=== PATIENT | female | born 1990 | race Caucasian/White ===

== ENCOUNTER → 2017-11-26 10:52 | Outpatient (CLI) | payer BC, SELFPAY ==
[2017-11-29 07:07] LABS: HPV Reflexed? NOT INDICATED
== END ==
PROVIDERS: Visit Provider Obstetrics & Gynecology
DX: Z12.72 Encounter for screening for malignant neoplasm of vagina (principal)
CPT/HCPCS: 88175; G0145

== ENCOUNTER → 2018-05-05 17:51 | Outpatient (CLI) | payer BC, SELFPAY ==
[2018-05-05 19:54] LABS: Chlamydia Trachomatis by PCR Negative (Negative); Neisserai gonorrhoeae by PCR Negative (Negative); Probe Check PASS; Sample Adequacy Control PASS; Specimen Processing Control PASS
== END ==
PROVIDERS: Visit Provider Obstetrics & Gynecology
DX: Z11.3 Encounter for screening for infections with a predominantly sexual mode of transmission (principal)
CPT/HCPCS: 87491; 87591

== ENCOUNTER → 2018-05-18 09:59 | Outpatient (CLI) | payer BC, SELFPAY ==
[2018-05-18 11:15] LABS: Color, Urine Yellow (Yellow); Glucose, Dipstick Normal (Normal); Ketone-Dipstick Negative (Negative); Leukocyte Esterase-Dipstick Negative /ul (Negative); Nitrite-Dipstick Negative (Negative); Occult Blood-Urine Negative /ul (Negative); Protein-Dipstick Negative (Negative); Urine Bilirubin Dipstick Negative (Negative); Urine Clarity Clear (Clear); Urine Urobilinogen Normal (Normal)
[2018-05-18 11:21] LABS: Absolute Lymphocyte Count 1.66 X10^3/ul (0.83-4.51); Absolute Neutrophil Count 6.8 X10^3/uL (2.0-7.7); Basophil# 0.02 X10^3/uL; Basophil% 0.2 % (0-1); Eosinophil# 0.12 X10^3/uL; Eosinophils% 1.3 % (0-5); Hemoglobin 13.6 g/dl (12.0-15.0); Lymphocyte # 1.66 X10^3/ul (4.0); Lymphocyte % 17.8 % (19-41); Mean Corp Hgb Conc 33.2 g/gl (32-36); Mean Corpuscular Hgb 28.6 pg (27.0-32.0); Mean Corpuscular Volume 86.1 fL (81-99); Mean Platelet Vol. 10.5 fl (6.2-12.0); Monocyte# 0.69 X10^3/uL; Monocyte% 7.4 % (0-10); Neutrophil # 6.79 X10^3/uL (2.7-7.7); Neutrophil % 73.1 % (47-70); Platelet Count 262 K/mm3 (150-450); RBC Distribution Width CV 12.5 % (11.6-14.6); RBC Distribution Width SD 39.6 fl (35.1-43.9); Red Blood Count 4.76 M/mm3 (4.2-5.4); White Blood Count 9.3 K/mm3 (4.4-11.0)
[2018-05-18 11:23] LABS: POSITIVE COUNT NO; POSITIVE DIFFERENTIAL NO; POSITIVE MORPHOLOGY NO
[2018-05-18 11:26] LABS: Amphetamine Urine VISTA NEGATIVE (<1000 ng/mL); Barbiturate Urine VISTA NEGATIVE (< 200 ng/mL); Benzodiazepine Urine VISTA NEGATIVE (< 200 ng/mL); Cocaine Urine VISTA NEGATIVE (< 300 ng/mL); Ecstacy Urine VISTA NEGATIVE (< 500 ng/mL); Methadone Urine VISTA NEGATIVE (< 300 ng/mL); PCP Urine VISTA NEGATIVE (< 25 ng/mL); THC Urine VISTA NEGATIVE (< 50 ng/mL); Vista UDS pH Range 7
[2018-05-18 11:27] LABS: COTININE Drug Screen Negative (<200 ng/mL)
[2018-05-18 11:56] LABS: Thyroid Stim Hormone (TSH) 0.87 uIU/mL (0.358-3.74)
[2018-05-19 10:10] LABS: HIV - WCH Non-Reactive (Nonreactive); Rubella IgG > 500.0 IU/mL
[2018-05-19 13:36] LABS: HEPATITIS B SURFACE AG Negative (Negative); Hep C Antibodies <0.1 s/co ratio (0.0-0.9)
[2018-05-21 03:42] LABS: Prenatal RPR NONREACTIVE (NONREACTIVE)
== END ==
PROVIDERS: Visit Provider Obstetrics & Gynecology
DX: Z34.81 Encounter for supervision of other normal pregnancy, first trimester (principal)
CPT/HCPCS: 36415; 80307; 81002; 84443; 85025; 86703; 86762; 86803; 87340

== ENCOUNTER 2018-06-18 06:02 | Day surgery (SDC) | payer BC, SELFPAY ==
[2018-06-18] VITALS (7 sets, daily range): BP systolic 113–143; BP diastolic 80–100; PULSE 84–93; RESP 16–18; TEMP 36.8–37; O2SAT 99–100; BMI 41.5
--- NOTE | 2018-06-18 07:30 | POC_PTH ---
PATIENT: YANELIS LYN LOC: [facility] [place] U[place][id number] AGE/SX: 28/F ROOM: RE06/18/[address]: Dr. Wilbur Prasad MD : [id number] BED: DIS: 06/18/2018 SPEC #: [id number] RECD: 06/18/18 08:31 STATUS: JACQUI BRANDT #: [id number] ARIADNE: 06/18/18 07:[address]: Wilbur Prasad DEPT: SURGICAL PATHOLOGY RECD BY: Mitchell Beltran ENTERED: 06/18/18 11:58 SP TYPE: PROD CONC OTHR DR: No Primary Care Phys Tissues: Product of conception, NOS Procedures: Surgery Specimen Level IV HEADER OPERATION: Dilation and curettage, suction PRE-OP DIAGNOSIS: Missed TISSUE SUBMITTED: Products of conception MICROSCOPIC DIAGNOSIS Endometrium, curettage: Chorionic villi, decidualized stroma and trophoblastic cells consistent with products of conception. AM:moises 06/21/18 MICROSCOPIC DESCRIPTION Slides are reviewed. GROSS DESCRIPTION Received in fixative is one container labeled with the patient's name and designated products of conception. The specimen consists of a piece of pink hemorrhagic tissue consistent with gestational sac measuring 6.5 x 3 x 2.5 cm. Also present in the container are multiple fragments of hemorrhagic soft tissue measuring in aggregate 2.5 x 2 x 0.5 cm. tissue is noted measuring 1 x 1 x 0.3 cm. Diagnostic Radiologic Technologist sections are submitted in two cassettes. Cassette 1 contains the tissue. / DERRELL:moises 06/18/18 TC:5 CPT: 87791
--- NOTE | 2018-06-18 07:53 | DCINST_ITS ---
You will use the following diet at home:: No restrictions, Regular Your food should be the consistency of: Regular Discharge Activity: Return to Normal Activity, No Restrictions, May Drive, May Shower Return to work on:: 06/21/18 May shower in (days): 0 May resume sexual activity in: 3 weeks Call your doctor if your incision/area has: Sudden Increased Bleeding, Foul Smelling Discharge Call your doctor if you observe: Fever of 101 or Higher, Inability to urinate, Inability to have a bowel movement, Using more than one pad per hour, Shortness of breath, Chest pain, Calf discomfort, Uncontrolled pain Cleanse incision/area with: Soap & Water Allergies/Adverse Reactions: Allergies amoxicillin Allergy (Verified 06/16/18 08:26) Rash Medications to take at Discharge Vit No.130/Iron/FA [ Tablet] 1 tab PO DAILY 08/01/16 Ibuprofen 600 mg PO 4X/DAY #20 tab 06/18/18 The following prescriptions were given: Ibuprofen 600 mg PO 4X/DAY #20 tab Primary Care Physician: Care Physician,No Primary [Primary Care Provider] - Test Results: Test results from this visit will be discussed in further detail at your follow- up appointment, if applicable. Please Follow Up With: Wilbur Prasad MD When: one week
--- NOTE | 2018-06-18 07:53 | PCM.OPRPT ---
Problem List (1) Missed with demise before 20 completed weeks of gestation Status: Acute Report of Operation Date of Procedure: 06/18/18 Pre-Operative Diagnosis: Missed Post-Operative Diagnosis: Same Surgery/Procedure Performed:: Suction Dilation and Curettage Description of Surgical Findings:: Cervical OS open to 9mm. Bleeding present. Appropriate products of conception for EGA at time of demise. health care assistant: None Type of Anesthesia:: MAC Anesthesiologist: Jack Shea Special Medications: none Specimen's removed: Products of conception Drains: none Estimated Blood Loss (mL): 20cc Fluids Replaced: 500cc LR Description of Procedure: Emely was found to have an embryonic demise at approximately 7 6/7 weeks EGA based on US findings. She was taken to the OR with IV running. She was given gentamicin and clindamycin intravenously for surgical prophylaxis. MAC anesthesia was introduced without complication. She was prepped and draped in the dorsal lithotomy position. A red rubber catheter was used to drain the bladder. A weighted speculum was placed in the posterior vagina , the cervix identified and grasped anteriorly with a single toothed tenaculum. A #8 suction curette was then placed into the uterine cavity, suction applied, and products of conception were obtained. The suction curette was removed and a sharp curettage was then performed. The suction curette was reintroduced and the remained products of conception removed. Bleeding was light. All instruments were removed from the vagina. She was reversed from anesthesia and taken to the recovery room in stable condition. Blood type is O+. Sponge and instrument counts were correct. - Complications none - Admit VTE Documentation VTE Present on Admission: No VTE Mechan Device Prophylaxis: SCD's VTE Pharm Prophylaxis ordered?: No Reason prophylaxis not ordered:: Treatment Not Indicated
[2018-06-18] MEDS: Ketorolac 30 MG/ML Syringe IV (08:54)
== END 2018-06-18 09:22 | disposition home or self-care (01) ==
LOC: SDC 06:04 → AC 06:04
PROVIDERS: Referring Provider Obstetrics & Gynecology; Visit Provider Obstetrics & Gynecology
PROC: (CPT 59820; principal; 2018-06-18 07:15)
DX: O02.1 Missed abortion (principal)
CPT/HCPCS: 01965; 59820; 88305; J7120

== ENCOUNTER → 2018-11-09 18:29 | Outpatient (CLI) | payer BC, SELFPAY ==
[2018-11-09 23:20] LABS: Chlamydia Trachomatis by PCR Negative (Negative); Neisserai gonorrhoeae by PCR Negative (Negative); Probe Check PASS; Sample Adequacy Control PASS; Specimen Processing Control PASS
[2018-11-12 12:47] LABS: HPV Reflexed? NOT INDICATED
== END ==
PROVIDERS: Referring Provider Obstetrics & Gynecology; Visit Provider Obstetrics & Gynecology
DX: Z11.3 Encounter for screening for infections with a predominantly sexual mode of transmission (principal); Z12.4 Encounter for screening for malignant neoplasm of cervix
CPT/HCPCS: 87491; 87591; 88175; G0145

== ENCOUNTER → 2018-11-26 15:25 | Outpatient (CLI) | payer BC, SELFPAY ==
[2018-06-18 06:36] VITALS: BMI 41.5
[2018-11-26 16:26] LABS: Absolute Lymphocyte Count 1.99 X10^3/ul (0.83-4.51); Absolute Neutrophil Count 12.6 X10^3/uL (2.0-7.7); Basophil# 0.02 X10^3/uL; Basophil% 0.1 % (0-1); Eosinophil# 0.06 X10^3/uL; Eosinophils% 0.4 % (0-5); Hematocrit 40.1 % (37-47); Hemoglobin 13.4 g/dl (12.0-15.0); Lymphocyte # 1.99 X10^3/ul (4.0); Lymphocyte % 12.7 % (19-41); Mean Corp Hgb Conc 33.4 g/gl (32-36); Mean Corpuscular Hgb 28.6 pg (27.0-32.0); Mean Corpuscular Volume 85.7 fL (81-99); Mean Platelet Vol. 10.9 fl (6.2-12.0); Monocyte# 0.88 X10^3/uL; Monocyte% 5.6 % (0-10); Neutrophil # 12.63 X10^3/uL (2.7-7.7); Neutrophil % 80.9 % (47-70); POSITIVE COUNT NO; POSITIVE DIFFERENTIAL NO; POSITIVE MORPHOLOGY NO; Platelet Count 298 K/mm3 (150-450); RBC Distribution Width CV 12.4 % (11.6-14.6); RBC Distribution Width SD 38.1 fl (35.1-43.9); Red Blood Count 4.68 M/mm3 (4.2-5.4); White Blood Count 15.6 K/mm3 (4.4-11.0)
[2018-11-26 16:30] LABS: COTININE Drug Screen Negative (<200 ng/mL)
[2018-11-26 16:36] LABS: Amphetamine Urine VISTA NEGATIVE (<1000 ng/mL); Barbiturate Urine VISTA NEGATIVE (< 200 ng/mL); Benzodiazepine Urine VISTA NEGATIVE (< 200 ng/mL); Cocaine Urine VISTA NEGATIVE (< 300 ng/mL); Ecstacy Urine VISTA NEGATIVE (< 500 ng/mL); Methadone Urine VISTA NEGATIVE (< 300 ng/mL); PCP Urine VISTA NEGATIVE (< 25 ng/mL); THC Urine VISTA NEGATIVE (< 50 ng/mL); Vista UDS pH Range 6
[2018-11-26 16:40] LABS: Color, Urine Yellow (Yellow); Glucose, Dipstick Normal (Normal); Ketone-Dipstick Negative (Negative); Leukocyte Esterase-Dipstick 100 /ul (Negative); Nitrite-Dipstick Negative (Negative); Occult Blood-Urine Negative /ul (Negative); Protein-Dipstick Negative (Negative); Urine Bilirubin Dipstick Negative (Negative); Urine Clarity Sl. Cloudy (Clear); Urine Urobilinogen Normal (Normal); Urine pH 6.5 (5.0 - 8.0)
[2018-11-26 16:44] LABS: Thyroid Stim Hormone (TSH) 0.44 uIU/mL (0.358-3.74)
[2018-11-26 17:27] LABS: HIV - WCH Non-Reactive (Nonreactive); Rubella IgG > 500.0 IU/mL
[2018-11-30 11:19] LABS: HEPATITIS B SURFACE AG Negative (Negative); Hep C Antibodies <0.1 s/co ratio (0.0-0.9)
[2018-12-03 02:05] LABS: Prenatal RPR NONREACTIVE (NONREACTIVE)
== END ==
PROVIDERS: Visit Provider Obstetrics & Gynecology
DX: Z34.81 Encounter for supervision of other normal pregnancy, first trimester (principal)
CPT/HCPCS: 36415; 80307; 81002; 84443; 85025; 86703; 86762; 86803; 87340

== ENCOUNTER → 2019-02-08 16:30 | Outpatient (CLI) | payer BC, SELFPAY ==
[2018-06-18 06:36] VITALS: BMI 41.5
[2019-02-08 17:42] LABS: Hematocrit 35.4 % (37-47); Hemoglobin 12.3 g/dl (12.0-15.0); Mean Corp Hgb Conc 34.7 g/gl (32-36); Mean Corpuscular Hgb 29.1 pg (27.0-32.0); Mean Corpuscular Volume 83.7 fL (81-99); Mean Platelet Vol. 10.3 fl (6.2-12.0); Platelet Count 258 K/mm3 (150-450); RBC Distribution Width SD 39.7 fl (35.1-43.9); Red Blood Count 4.23 M/mm3 (4.2-5.4); White Blood Count 13.4 K/mm3 (4.4-11.0)
[2019-02-08 17:45] LABS: International Normalized Ratio 0.9; Partial Thromboplast Time 26.1 Seconds (24.1-36.2); Prothrombin Time (Protime)PT. 12.4 SECONDS (11.7-14.9); Scan Indicated on CBC? Y/N NO
[2019-02-08 17:49] LABS: Protein, Urine (Random) < 6.0 mg/dL (<11.9)
[2019-02-08 18:29] LABS: AST(SGOT) 9 U/L (15-37); Alanine Aminotransfer ALT/SGPT 15 U/L (13-56); Creatinine, Serum 0.74 mg/dL (0.55-1.02); EST Glomerular Filtration Rate 98 mL/min (>60); Est Glom Filt Rate - Afr Amer 119 mL/min (>60); Uric Acid 3.3 mg/dL (2.6-6.0)
== END ==
PROVIDERS: Visit Provider Obstetrics & Gynecology
DX: Z34.82 Encounter for supervision of other normal pregnancy, second trimester (principal)
CPT/HCPCS: 36415; 82565; 82570; 84156; 84450; 84460; 84550; 85027; 85610; 85730

== ENCOUNTER → 2019-04-06 15:22 | Outpatient (CLI) | payer OTHER, SELFPAY ==
[2018-06-18 06:36] VITALS: BMI 41.5
[2019-04-06 15:51] LABS: Hematocrit 36.5 % (37-47); Hemoglobin 12.5 g/dL (12.0-15.0); Mean Corp Hgb Conc 34.2 g/dL (32-36); Mean Corpuscular Hgb 29.3 pg (27.0-32.0); Mean Corpuscular Volume 85.7 fL (81-99); Mean Platelet Vol. 10.3 fl (6.2-12.0); Platelet Count 252 K/mm3 (150-450); RBC Distribution Width CV 12.7 % (11.6-14.6); RBC Distribution Width SD 39.3 fl (35.1-43.9); Red Blood Count 4.26 M/mm3 (4.2-5.4); White Blood Count 14.1 K/mm3 (4.4-11.0)
[2019-04-06 16:25] LABS: Glucose Challenge Gest 1H 50g 143 mg/dL (70-140)
== END ==
PROVIDERS: Visit Provider Obstetrics & Gynecology
DX: Z34.82 Encounter for supervision of other normal pregnancy, second trimester (principal)
CPT/HCPCS: 36415; 82950; 85027

== ENCOUNTER → 2019-04-12 06:53 | Outpatient (CLI) | payer OTHER, SELFPAY ==
[2018-06-18 06:36] VITALS: BMI 41.5
[2019-04-12 08:09] LABS: Glucose GTT-Gestation. Fasting 98 mg/dL (<105)
[2019-04-12 09:22] LABS: Glucose GTT-Gestational 1 Hr 204 mg/dL (<190)
[2019-04-12 10:11] LABS: Glucose GTT-Gestational 2 Hr 170 mg/dL (<165)
[2019-04-12 11:38] LABS: Glucose GTT-Gestational 3 Hr 57 L (<145)
== END ==
PROVIDERS: Referring Provider Obstetrics & Gynecology; Visit Provider Obstetrics & Gynecology
DX: O24.912 Unspecified diabetes mellitus in pregnancy, second trimester (principal); Z3A.00 Weeks of gestation of pregnancy not specified
CPT/HCPCS: 36415; 82951; 82952

== ENCOUNTER 2019-05-11 10:00 | Outpatient (RCR) | payer OTHER, SELFPAY | END 2019-05-14 23:59 | LOC: DC 10:00 | PROVIDERS: Visit Provider Obstetrics & Gynecology | DX: O24.912 Unspecified diabetes mellitus in pregnancy, second trimester (principal) | CPT/HCPCS: 97802; G0108 ==

== ENCOUNTER 2019-05-31 15:00 | Outpatient (RCR) | payer OTHER, SELFPAY ==
[2018-06-18 06:36] VITALS: BMI 41.5
== END 2019-05-31 23:59 | disposition home or self-care (01) ==
LOC: DC 15:00
PROVIDERS: Referring Provider Obstetrics & Gynecology; Visit Provider Obstetrics & Gynecology
DX: O24.912 Unspecified diabetes mellitus in pregnancy, second trimester (principal)

== ENCOUNTER → 2019-06-06 17:54 | Outpatient (CLI) | payer OTHER, SELFPAY ==
[2018-06-18 06:36] VITALS: BMI 41.5
== END ==
PROVIDERS: Referring Provider Obstetrics & Gynecology; Visit Provider Obstetrics & Gynecology
DX: Z36.85 Encounter for antenatal screening for Streptococcus B (principal)
CPT/HCPCS: 87081

== ENCOUNTER 2019-06-24 05:20 | Inpatient (IN) | payer OTHER, SELFPAY ==
[2019-06-24] VITALS (16 sets, daily range): BP systolic 109–135; BP diastolic 54–91; PULSE 72–109; RESP 13–18; TEMP 36.1–36.7; O2SAT 97–100; BMI 40.1
[2019-06-24] MEDS: Lactated Ringers 1,000 ML 999 ML IV (05:45)
[2019-06-24 06:08] LABS: Absolute Lymphocyte Count 2.08 X10^3/uL (0.83-4.51); Absolute Neutrophil Count 9.7 X10^3/uL (2.0-7.7); Basophil# 0.04 X10^3/uL; Basophil% 0.3 % (0-1); Eosinophil# 0.07 X10^3/uL; Eosinophils% 0.5 % (0-5); Hematocrit 40.1 % (37-47); Hemoglobin 13.6 g/dL (12.0-15.0); Lymphocyte # 2.08 X10^3/ul (4.0); Lymphocyte % 16.3 % (19-41); Mean Corp Hgb Conc 33.9 g/dL (32-36); Mean Corpuscular Volume 85.5 fL (81-99); Mean Platelet Vol. 11.2 fl (6.2-12.0); Monocyte# 0.83 X10^3/uL; Monocyte% 6.5 % (0-10); NRBC Flagged by Analyzer 0 % (0-5); Neutrophil # 9.67 X10^3/uL (2.7-7.7); Neutrophil % 75.6 % (47-70); Platelet Count 221 K/mm3 (150-450); RBC Distribution Width CV 13.3 % (11.6-14.6); RBC Distribution Width SD 41.1 fl (35.1-43.9); Red Blood Count 4.69 M/mm3 (4.2-5.4); White Blood Count 12.8 K/mm3 (4.4-11.0)
[2019-06-24 06:45] LABS: Bedside Glucose 81 mg/dL (70-110)
[2019-06-24] MEDS: Lactated Ringers 1,000 ML 150 ML IV (07:06)
[2019-06-24] MEDS: Sodium Citrate/Citric Acid 30 ML UDC PO (07:07)
--- NOTE | 2019-06-24 07:14 | HP.PCM_ITS ---
- Problem List (1) Gestational diabetes mellitus (GDM) Status: Acute Qualifiers: Gestational diabetes mellitus control: oral hypoglycemic-controlled Trimester: third trimester Qualified Code(s): O24.415 - Gestational diabetes mellitus in , controlled by oral hypoglycemic drugs (2) 39 weeks gestation of Status: Acute History Date of Admission: 06/24/19 Final MEHDI: 06/30/19 Final MEHDI Source: US <20 weeks Gestational age: 41 Weeks and 1 Days History of this : This is a 29 year-old, G [2], P [1001], at 39 1/7 weeks gestational age with hx GDMA2 presenting for scheduled repeat section. Surgical History: Surgical History (Last Updated 06/24/19 @ 07:16 by Frances Serra MD) Previous section Z98.891 08/03/2016 Allergies amoxicillin Allergy (Verified 06/24/19 05:23) Rash Home Medications: Home Medications Vit No.130/Iron/Folic [ Tablet] 1 tab PO DAILY 08/01/16 Aspirin [Aspir 81] 81 mg PO DAILY 06/24/19 Glyburide 2.5 mg PO DAILY 06/24/19 Ibuprofen [Ibu] 600 mg PO Q6H PRN PRN #30 tab 06/26/19 Ibuprofen [Motrin] 600 mg PO Q6H PRN PRN #30 tab 06/26/19 Senna/Docusate Sodium [Senokot-S] 1 tab PO DAILY PRN #30 tab 06/26/19 Sennosides/Docusate Sodium [Senna-Docusate Sodium Tablet] 1 ea PO BID PRN PRN #30 tab 06/26/19 Smoking Status: Never smoker Alcohol: None Number of Fetus(es): 1 NST - FHR Rate Baby A Baseline: 142 History Past Pregnancies: Past Pregnancies PRIOR DELIVERY HISTORY DEL DATE GEST LAB WT LB WT OZ TYPE ANES LABOR TX 05 Jun 18 10 0 0 0 Sab General No Jul 30 38 48 6 8 C-Sec Spinal No Labs: Mom's Problem List Problem Status Onset Code Gestational diabetes mellitus (GDM) Acute O24.419 39 weeks gestation of Acute Z3A.39 Mom's Labs & Results 06/24/19 06/24/19 06/24/19 05:45 05:45 06:37 WBC 12.8 H RBC 4.69 Hgb 13.6 Hct 40.1 MCV 85.5 MCH 29.0 MCHC 33.9 RDW Std Deviation 41.1 RDW Coeff of Vincent 13.3 Plt Count 221 MPV 11.2 Immature Gran % (Auto) 0.800 Neut % (Auto) 75.6 H Lymph % (Auto) 16.3 L [place] % (Auto) 6.5 Eos % (Auto) 0.5 Baso % (Auto) 0.3 Absolute Neuts (auto) 9.7 H Absolute Lymphs (auto) 2.08 Nucleated RBC % 0 POC Glucose 81 Blood Type O POSITIVE Antibody Screen NEGATIVE Course Did the patient receive Yes care? Labs Blood Type: O RH: POSITIVE RPR/VDRL/Syphilis Nonreactive Rubella status Immune HbSAg Negative Date Done: 11/26/18 Chlamydia Negative Gonorrhea Negative HIV/AIDS Non-Reactive Group B Strep: Negative Current Obstetrical History Gestational Diabetes Yes: on glyburide Incompetent Cervix No Infertility No IUGR No Macrosomia No Hypertension/Pre-eclampsia No: ? chronic htn Placenta Previa/Abruption No PTL/PROM No Uterine anomaly No Oligohydramnios No Polyhydramnios No Multiple gestation No Past Medical History Asthma No Diabetes No Hypertension No: ? chronic htn Heart disease No Mitral valve prolapse No Neurologic/Seizure disorder/ No Migraines Kidney disease No Liver disease No Varicosities No Clotting disorders/Hx of DVT No Thyroid Dysfunction No Other medical diseases No Psychiatric disorders No Major trauma No Abnormal PAP smear No Sleep apnea No Mammogram in the last 2 years No Social History Marital Status: Alleged father [place] Hx Smoking No Smoking Status Never smoker ANTEPARTUM FLOW CHART VISIT GE RTC FU F F WV U U DATE WK MD WKS HT PN HR M SS BP ED WT WV GL D EF ST __ ____ ___ __ __ ___ __ __ __ ___ __ __ __ ___ __ 08 Jun SHM 1 38 V + + 116/88 sl 229 - - 03 Jun 38 SHM 1 37 V + + 122/82 sl 225 - - 23 Sep 36 SHM 1 36 V + + 110/80 sl 226 - - 09 Sep 34 SHM 2 35 V + + 114/78 0 225 - - 04 Sep 33 SHM 1 34 V + + 122/78 0 227 - - 30 Apr 33 SHM 2 33 V + + 120/88 0 225 tr - Apr 32 SHM 2 32 ? + + 126/80 o 227 - - 07 Apr 29 SHM 2 31 ? + + 110/80 0 230 - - 24 Apr 09 SHM 3 28 ? + + 130/84 0 229 - - 25 Feb 23 DS 4 24 ? + + 132/78 0 228 - - 28 January 30 ELB 4 - - U+ + 130/90 0 223 - - 07 January 16 DS 3 17 ? U+ + 124/96 0 222 - - 10 Dec 12 DS 4 12 ? + O 140/100 0 222 - - 15 Nov 9 DS 4 ? U+ O 120/90 0 222 - - ANTEPARTUM NOTE(S): Jun 21 2019: NST today Jun 16 2019: Copy of blood sugars obtained for review. Jun 06 2019: May 23 2019: Blood sugars copied for review. May 18 2019: Blood sugars copied for review May 13 2019: doing well, BS record copied May 04 2019: Apr 20 2019: feeling well. Very emotional, needs educated aboout GDM. Apr 06 2019: feeling well. Glucola lab drawn today. Mar 08 2019: BP large cuff Feb 08 2019: concerned about headaches and blood pressure. Jan 18 2019: BP Large cuff Dec 22 2018: feeling well. Nov 26 2018: feeling well. COMPREHENSIVE ANTEPARTUM NOTE(S): Jun 16 2019: Emeyl is here at 38 w 0 d for her NST, followed by a PNV. US for growth completed prior to NST today. She states that she feels nauseated today, and threw up x 1 this morning. Reports good FM. Denies spotting. Feels some mild irregular cramping. Slight edema noted. NST non-reactive, read per Dr. Luis Antonio Escobedo. AW Jun 16 2019: EFW 2910g (22nd%), POLY 11.8cm, BPP 8/10 (-2 for NST - Cat I but nonreactive). C/S consents signed and reviewed. Few elevated fasting blood sugars. Inc Glyburide to 2.5mg qhs - f/u next week. Jun 13 2019: H taken to OB. tkg Jun 06 2019: Emely is here for NST for GDM on meds at 36.4 weeks gest and appt. Good movement. Feeling fairly well. States trying hard w diet and glucose monitoring. Brought current Blood sugar readings and copied for chart. For GBS today. LARC form explained. MIKE. May 23 2019: Emely is here for her NST for GDM (on Glyburide) at 34 w 4 d. She states that she is feeling well and reports good FM. Denies spotting/cramping. No edema noted. NST reactive, read per Dr. Luis Antonio Escobedo. AW May 23 2019: EFW 2289g (26th%), POLY 12cm. Fasting blood sugars improved. Continue Glyburide 2.5mg qpm. May 18 2019: Emely is here for her NST at 33 w 6 d. NST/EEFM explained. She reports that she feels well. Denies spotting or cramping. Feels good FM. No edema noted. Blood sugars copied for review. NST reactive, read per Dr Luis Antonio Escobedo, acoustic stim x 1. AW May 18 2019: Fasting blood sugars with some elevation, target 78%. Will start Glyburide 1.25mg qpm. PTL, ROM, FM precautions. May 13 2019: Elevated fastings, 1h postprandials ok. Started new dietary regimen, increasing qpm carb intake with improvement of levels, just started. Declines rx today. Will continue to observe with dietary change. f/u next week. Plan for US in 2 weeks. Apr 20 2019: Reviewed dx GDM importance of euglycemia to reduce risk for hypoglycemia and macrosomia. Reviewed increased risk for should dystocia also and potential risks for clavicular or humoral fracture, HIE, CP, . Target fasting and 1h postprandials reviewed. 1h <140, fastings 90s-low 100s. Dietary strategies discussed. f/u with patrol captain. Apr 07 2019: Entry for 04/06/19: Rpt heart views today show nl 4 chamber, + echogenic cardiac focus. Recommend MFM referral. Discussed NIPT r/b vs. amniocentesis. Pt considering, will call to proceed with referral. Mar 08 2019: GCT and CBC next visit. No specific complaints. Good movement. BP normal. PIH labs normal. Feb 10 2019: Here for PNV. sono. She has high BP. May have chronic HTN as many of her BPs borderline in . Recommended baby ASA daily. Also will have PIH labs today as baseline Advised if BPs remain elevated/worsening, that she may be started on antihypertensive med for . No RX given today. Will notify of labs as back. RTO for next PNV. EB Jan 19 2019: Diastolic BP modestly elevated. No proteinuria. Likely has chronic hypertension. Anatomical US next visit. Jan 18 2019: Anatomical US next visit. Jan 18 2019: Emely is taking an 81 mg Aspirin daily. She has felt FM. Declines genetics testing. kbm Dec 22 2018: Doing well. No bleeding. labs normal. Good heart beat today. BP modestly elevated. Has hx of gestational hypertension. Will start low dose aspirin. Consider antihypertensive if remains elevated. Nov 26 2018: Some nausea at times. No bleeding. US confirms EDC today. Normal heart beat today. NOB nurse intake today and labs done today. Nov 26 2018: Emely is here for her NOB visit at 9 w 1 d, she is a A1 with an MEHDI of 06/30/2019. US and visit with Dr. Prasad completed prior to NOB visit. , Silvano, accompanies her today. They have a young son at home, who was delivered by C/S for lack of progress. Past history updated. Delivery by repeat C/S at [facility] is planned and she will breastfeed. She had problems with her son, and pumped and fed him expressed breast milk for one year. Discussed office class as a refresher is needed. Office practice patterns reviewed, and she is aware of which labs will be collected today. Emergencies/danger signs to report, round ligament pain, reporting s/s of a UTI, and common OTC medications approved/not approved for use during reviewed. She takes an OTC vitamin that contains DHA, and tolerates this well as long as she takes it just before be. Reports daily nausea and vomiting. Discussed ways to minimize nausea, including small frequent meals with protein included throughout the day, adequate water hydration of at least one gallon per 24 hrs, Unisom at bedtime, motion sickness bracelets, and Vitamin B6 50 mg twice a day. Emely is a life long non-smoker, and she denies use of drugs or ETOH. Genetic Screening form completed, no significant history noted. MSAFP and CF testing declined, consent signed as such. Emely walks several times a week for exercise. Kegel exercises reviewed. Lifting limits discussed. Dietary and water needs of reviewed, including caloric needs, recommended weight gain, limiting empty calories, and limiting caffeine to one cup a day. Printed guide for food safety provided with review. Emely states that she understands all information provided during NOB visit, and has no questions following same. To [facility] draw station for labs. AW Expected Delivery Method: Scheduled Section Number of Visits: 14 Physical Exam Vitals: AVSS General: Alert, Oriented x3, Cooperative, No apparent distress HEENT: Atraumatic, Normocephalic Cardiovascular: Regular rate, Regular Rhythm, Normal S1, Normal S2 Lungs: Normal air movement Abdomen: Soft, Non Tender, Gravid Neurological: Neuro grossly intact Estimated gestational size: Appropriate for gestational size Presentation: Cephalic Assessment/Plan All Active Problems Gestational diabetes mellitus (GDM) (Acute) 39 weeks gestation of (Acute) This is a 29 year-old, G [2], P [1001], at 39 1/7 weeks gestational age for scheduled repeat section -Proceed as planned.
--- NOTE | 2019-06-24 08:51 | PCM.OPRPT ---
Problem List (1) Gestational diabetes mellitus (GDM) Status: Acute Qualifiers: Gestational diabetes mellitus control: oral hypoglycemic-controlled Trimester: third trimester Qualified Code(s): O24.415 - Gestational diabetes mellitus in , controlled by oral hypoglycemic drugs (2) 39 weeks gestation of Status: Acute Delivery Classification: Scheduled Final MEHDI: 06/30/19 Gestational age: 39 Weeks and 1 Days investigator internal revenue: Ludmila Longoria Type of Anesthesia:: Spinal Date of Procedure: 06/24/19 Pre-Operative Diagnosis: 39 1/7wga, gestational diabetes, prior section Post-Operative Diagnosis: 39 1/7wga, Gestational diabetes, prior section Indications: 29-year-old 3 para 1-0-1-1 admitted at 39-1/7 weeks gestational age for scheduled repeat section. Indications for : Repeat Elective Description of Procedure: The patient was taken to the operating room and spinal analgesia was administered. She is placed in a dorsal supine position with left lateral tilt. The perineum and abdomen were prepped and draped in sterile fashion. And the spinal was found to be adequate. A Pfannenstiel incision was made using a scalpel and brought down to incise the subcutaneous tissue and rectus fascia at the midline. Subcutaneous tissue was bluntly dissected off the fascia laterally. The fascial incision was dissected laterally and cephalad using curved Ha scissors. The superior leaflet of the rectus fascia was grasped using Ramone clamps and bluntly dissected and sharply dissected from the underlying rectus muscle. In a similar fashion the inferior rectus fascia was dissected from the underlying muscle. The rectus muscles were bluntly at the midline. The peritoneum was identified and entered [sharply]. The bladder blade was placed into the abdomen and the vesicouterine peritoneal fold identified. The fold was incised and a bladder flap created. Bladder blade was then repositioned to the abdomen. A low transverse hysterotomy was made using the [Metzenbaum scissors] to level of the membranes. The hysterotomy was extended bluntly cephalad and caudad. The membranes were then ruptured revealing clear fluid. The head was elevated and brought to the level of the hysterotomy. A nuchal cord x2 was reduced and infant mouth and nares bulb suctioned. A vigorous [male] delivered. The cord was doubly clamped and cut after 30 seconds. The was passed to awaiting [nursery personnel]. The placenta was [expressed] from the uterus and appeared intact on inspection. The uterus was cleared of debris. The hysterotomy was then repaired using 0 Vicryl running lock suture. A second imbricating layer was also placed for additional hemostasis. The bladder blade was removed. The anterior cul-de-sac was cleared of debris. An omental adhesion to the anterior abdominal peritoneum was lysed using the Bovie with excellent hemostasis. The peritoneum and rectus muscles were reapproximated using 2-0 Vicryl running suture. The rectus fascia was closed using 0 strata fix running suture. The subcutaneous tissue was reapproximated using 2-0 Vicryl. The skin was closed using 4-0 Monocryl subcuticularly by the FINISHER MACHINE under my supervision. Mepilex occlusive dressing was placed over the incision. The fundus was firm. The patient was then transferred to the recovery room without complication. Sponge, instrument, and needle counts were correct ?2. Amniotic Membrane Rupture Type: Artificial Amniotic Fluid Description: Clear Placenta Disposition: [facility] Drain: De Souza to straight drain Fluids Replaced: 1300 ml Cord Entanglement: Around neck x 2, loose Nuchal Cord Compression: Without compression Cord Vessel Description: 3 Vessels Esitmated Blood Loss (ml): 700 Infant Gender: Male (1 minute): 9 (5 minute): 9 Delayed cord clamping: Yes Antibiotic Given: Ancef 3 grams IV x1 Pt instructed on risks of surgery: Bleeding, Anesthesia Risks, Infection, Need for Future C-Sections, Injury to surrounding structure(s) including bowel and bladder Complications: None - Admit VTE Documentation VTE Present on Admission: No VTE Mechan Device Prophylaxis: SCD's VTE Pharm Prophylaxis ordered?: No
[2019-06-24] MEDS: Oxytocin 30 units/NS 500 ml 30 UNITS/500 ML IV.SOLN 167 UNITS IV (09:05)
[2019-06-24] MEDS: proCHLORPERazine 10 MG/2 ML Vial IV (11:18)
--- NOTE | 2019-06-24 11:28 | NURSING ---
shantelle care and pad changed. Pt has had two episodes of n/v. Declined offer of compazine. at this time.
--- NOTE | 2019-06-24 11:42 | NURSING ---
Pt had additional emesis at 11:00. Now requesting compazine. See MAR
[2019-06-24 11:50] LABS: Bedside Glucose 103 mg/dL (70-110)
[2019-06-24] MEDS: Lactated Ringers 1,000 ML 100 ML IV (12:09)
[2019-06-24] MEDS: Ketorolac 30 MG/ML Syringe IV ×2 (13:51→21:53)
[2019-06-24] MEDS: 0.9% Saline Lock 10 ML Syringe IV ×2 (13:51→21:53)
[2019-06-24] MEDS: Ondansetron 4 MG/2 ML Vial IV (18:45)
--- NOTE | 2019-06-24 18:50 | NURSING ---
patient unable to keep food down
[2019-06-24] MEDS: Lactated Ringers 500 ML 999 ML IV (19:20)
[2019-06-24] MEDS: Lactated Ringers 500 ML 100 ML IV (19:52)
[2019-06-25] VITALS (7 sets, daily range): BP systolic 104–120; BP diastolic 50–88; PULSE 71–107; RESP 18; TEMP 36.2–37.4; O2SAT 97–98
[2019-06-25] MEDS: Lactated Ringers 1,000 ML 100 ML IV (00:45)
[2019-06-25] MEDS: Ketorolac 30 MG/ML Syringe IV ×4 (03:42→22:58)
[2019-06-25] MEDS: 0.9% Saline Lock 10 ML Syringe IV ×4 (03:42→22:58)
[2019-06-25 05:57] LABS: Hematocrit 33.4 % (37-47); Hemoglobin 11.1 g/dL (12.0-15.0); Mean Corp Hgb Conc 33.2 g/dL (32-36); Mean Corpuscular Hgb 28.9 pg (27.0-32.0); Mean Platelet Vol. 11.1 fl (6.2-12.0); Platelet Count 177 K/mm3 (150-450); RBC Distribution Width CV 13.8 % (11.6-14.6); RBC Distribution Width SD 43.5 fl (35.1-43.9); Red Blood Count 3.84 M/mm3 (4.2-5.4); White Blood Count 14.1 K/mm3 (4.4-11.0)
--- NOTE | 2019-06-25 06:57 | PN.OBGYN_ITS ---
Patient Problems: Active and Suspected Problems Gestational diabetes mellitus (GDM) (Acute) 39 weeks gestation of (Acute) Subjective: Lying in bed, NAD. De Souza with clear concentrated appearing urine. Objective: POD#1 Repeat C/S Doing well. Nursing. Pain control adequate. No concerns voiced. - Physical Exam General: Alert, Oriented x3, Cooperative, No apparent distress HEENT: Atraumatic, EOMI Neck: Supple Abdomen: Soft - Fundus firm NT at 1-2 cm inferior to umbilicus Skin: Incision - Mepilex CDI Psych/Mental Status: Normal Affect Vital Signs Temp Pulse Resp BP Pulse Ox 97.8 F 94 18 108/60 97 06/25/19 03:40 06/25/19 05:30 06/25/19 05:30 06/25/19 03:40 06/25/19 05:30 Oxygen Delivery Method Room Air Weight: 101 kg Body Mass Index (BMI) 40.1 Intake and Output for Last 24 Hours 06/23/19 06/24/19 06/25/19 23:59 23:59 23:59 Intake Total 4128.08 / 4128.08 1088.33 / 1088.33 Output Total 1175 / 1175 1000 / 1000 Balance 2953.08 / 2953.08 88.33 / 88.33 Laboratory Tests Past 24 Hrs 06/25/19 05:35 WBC 14.1 H RBC 3.84 L Hgb 11.1 L Hct 33.4 L MCV 87.0 MCH 28.9 MCHC 33.2 RDW Std Deviation 43.5 RDW Coeff of Vincent 13.8 Plt Count 177 MPV 11.1 POC Glucose 06/24/19 11:38 POC Glucose 103 Medical Necessity - Tobacco Use Smoking Status: Never smoker Assessment/Plan All Active Problems Gestational diabetes mellitus (GDM) (Acute) 39 weeks gestation of (Acute) POD#1 Repeat C/S Stable postop. Continue care. S/L IV for continued Toradol today. Begin po m eds. Inc diet and activity as tolerated. D/C De Souza for voiding trial
[2019-06-25] MEDS: Prenatal Vits Tablet 1 TABLET PO (10:25)
[2019-06-25] MEDS: Senna/Docusate Sodium 1 Tablet PO (10:26)
[2019-06-26 02:15] VITALS: BP 128/82; PULSE 67; RESP 16; TEMP 36.6; O2SAT 98
[2019-06-26] MEDS: Ketorolac 30 MG/ML Syringe IV ×2 (05:31→11:10)
[2019-06-26] MEDS: 0.9% Saline Lock 10 ML Syringe IV ×2 (05:32→11:11)
--- NOTE | 2019-06-26 07:29 | PCM.PN.OB ---
Patient Problems: Active and Suspected Problems Gestational diabetes mellitus (GDM) (Acute) 39 weeks gestation of (Acute) Subjective: POD#2 repeat C/S Doing OK. Asking about a bruise superior to incision midportion , a little sore. Breast feeding well and milk has come in. Would like to go home today, but baby needs to have bili testing prior to dischg. Pain control adequate. Objective: Sitting up in chair, nursing baby. Gets up to walk across room NAD to show me her incision. - Physical Exam General: Alert, Oriented x3, Cooperative, No apparent distress HEENT: Atraumatic, EOMI Skin: Incision - Mepilex / incision CDI. Faint ecchymosis superior to the incision (likely bruise due to a surgical retractor) square shape pattern noted consistent with retractor pressure bruise. Psych/Mental Status: Normal Affect Vital Signs Temp Pulse Resp BP Pulse Ox 97.8 F 67 16 128/82 H 98 06/26/19 02:15 06/26/19 02:15 06/26/19 02:15 06/26/19 02:15 06/26/19 02:15 Oxygen Delivery Method Room Air Weight: 101 kg Body Mass Index (BMI) 40.1 Intake and Output for Last 24 Hours 06/24/19 06/25/19 06/26/19 23:59 23:59 23:59 Intake Total 4128.08 / 4128.08 1846.66 / 1846.66 Output Total 1175 / 1175 2525 / 2525 Balance 2953.08 / 2953.08 -678.34 / -678.34 Medical Necessity - Tobacco Use Smoking Status: Never smoker Assessment/Plan All Active Problems Gestational diabetes mellitus (GDM) (Acute) 39 weeks gestation of (Acute) POD#2 Repeat C/S Stable postop. Requesting dischg today. Dischg home today if baby released. RTO in 2 wk for postop incision check, prn sooner.
[2019-06-26 09:15] VITALS: BP 134/88; PULSE 58; RESP 16; TEMP 36.8
[2019-06-26] MEDS: Senna/Docusate Sodium 1 Tablet PO (11:09)
[2019-06-26] MEDS: Prenatal Vits Tablet 1 TABLET PO (11:10)
--- NOTE | 2019-06-26 12:18 | DCINST_ITS ---
Discharge Diet: No Restrictions Discharge Activity: May not drive while taking narcotic pain medications., May Shower, May Take a Tub Bath Return to work on:: 08/22/19 May resume sexual activity in: 4-6 weeks Lifting Restrictions: 20 pounds Additional Activity Instructions:: Nothing in the vagina for 4-6 weeks. You may return to work/school in 6 weeks. Change Dressing in (Days):: 7 Remove Dressing in (days):: 7 Cleanse incision/area with: Soap & Water Additional Instructions: If you experience any of the following, contact your healthcare provider. * Bleeding that soaks a pad every hour for 2 hours * Fever 100.4 or higher * Unrelieved incision or abdominal pain * Swelling, redness, discharge or bleeding from your incision * Problems urinating (including inability to urinate or burning while urinating). * Visual changes * Severe headache * Flu-like symptoms * Pain or redness in one of both of your breasts * Pain, warmth, tenderness or swelling in your legs, especially the calf area * Frequent nausea and vomiting * Symptoms of depression or anxiety If you experience any of the following, call 911 or go to the nearest Emergency Room. * Chest pain * Problems breathing * Seizure activity * Partial or complete paralysis of a body part, slurred speech, weakness or drooping of the face, or a sudden inability to walk or hold your balance Allergies/Adverse Reactions: Allergies amoxicillin Allergy (Verified 06/24/19 05:23) Rash Medications to take at Discharge Vit No.130/Iron/Folic [ Tablet] 1 tab PO DAILY 08/01/16 Aspirin [Aspir 81] 81 mg PO DAILY 06/24/19 Glyburide 2.5 mg PO DAILY 06/24/19 Ibuprofen [Motrin] 600 mg PO Q6H PRN PRN #30 tab 06/26/19 Senna/Docusate Sodium [Senokot-S] 1 tab PO DAILY PRN #30 tab 06/26/19 The following prescriptions were given: Ibuprofen [Motrin] 600 mg PO Q6H PRN PRN #30 tab PRN Reason: Pain Score 1-3/10 Transmission Status: Pending to [facility] Senna/Docusate Sodium [Senokot-S] 1 tab PO DAILY PRN #30 tab PRN Reason: Constipation Transmission Status: Pending to [facility] Follow-Up: Call to make an appointment with your doctor for an incision check in 1-2 weeks. You will also need a 6 week post- follow up appointment. Test results from this visit will be discussed in further detail at your follow- up appointment, if applicable. Please Follow Up With: Frances Serra MD - [phone] When: Call to make an appointment for an incision check in 2 weeks. Primary Care Physician: Care Physician,No Primary [Primary Care Provider] - Proposed Discharge Date: 06/26/19
== END 2019-06-26 12:35 | disposition home or self-care (01) | DRG 787 ==
PROVIDERS: Admitting Provider Obstetrics & Gynecology; Referring Provider Obstetrics & Gynecology; Visit Provider Obstetrics & Gynecology
PROC: 10D00Z1 Extraction of Products of Conception, Low, Open Approach (ICD-10-PCS; CPT 59514; principal; 2019-06-24 07:15)
DX: O34.219 Maternal care for unspecified type scar from previous cesarean delivery (principal); O10.92 Unspecified pre-existing hypertension complicating childbirth; O24.425 Gestational diabetes mellitus in childbirth, controlled by oral hypoglycemic drugs; O69.81X0 Labor and delivery complicated by cord around neck, without compression, not applicable or unspecified; Z79.82 Long term (current) use of aspirin; Z79.84 Long term (current) use of oral hypoglycemic drugs; Z3A.39 39 weeks gestation of pregnancy; Z37.0 Single live birth
CPT/HCPCS: 82962; 85025; 85027; 86850; 86900; 86901; 99218; J7120; A4216; G0378; J2405

== ENCOUNTER 2019-07-06 13:16 | Outpatient (CLI) | payer OTHER, SELFPAY ==
[2019-06-24 05:41] VITALS: BMI 40.1
== END 2019-07-06 14:15 | disposition home or self-care (01) ==
LOC: WPOUT 13:18 → WP 13:19
PROVIDERS: Referring Provider Obstetrics & Gynecology; Visit Provider Obstetrics & Gynecology
DX: P92.5 Neonatal difficulty in feeding at breast (principal)
CPT/HCPCS: 96152

== ENCOUNTER → 2019-11-11 14:10 | Outpatient (CLI) | payer OTHER, SELFPAY ==
[2019-06-24 05:41] VITALS: BMI 40.1
[2019-11-11 16:07] LABS: Hemoglobin A1c 4.5 % (4.2-6.3)
== END ==
PROVIDERS: Visit Provider Obstetrics & Gynecology
DX: Z86.32 Personal history of gestational diabetes (principal)
CPT/HCPCS: 36415; 83036